=== PATIENT | female | born 1950 ===

== ENCOUNTER 2020-04-25 14:55 | Emergency (ER) | payer MEDICARE, OTHER, SELFPAY ==
--- NOTE | ~2020-04-25 | XR_ITS ---
EXAMINATION: XR chest 2V DATE: 04/25/2020 16:20 INDICATION: Mid to right-sided chest burning pain. TECHNIQUE: Frontal and lateral views of the chest were obtained. COMPARISON: None. FINDINGS: There is mild atelectasis in left lower lung zone. No pleural effusion or pneumothorax. The heart size is normal. Surgical clips in the right upper quadrant are likely from cholecystectomy. IMPRESSION: 1. Mild atelectasis in left lower lung zone. Reviewed, dictated and finalized at location A. CONTROL TECHNICIAN G
[2020-04-25 15:15] VITALS: BP 154/74; PULSE 84; RESP 18; TEMP 36.6; O2SAT 98
--- NOTE | 2020-04-25 15:27 | ECG_ITS ---
Measurements Intervals [place] Rate: 73 P: 71 [place]: 171 QRS: 33 QRSD: 100 T: 42 QT: 371 QTc: 410 Interpretive Statements SINUS RHYTHM VENTRICULAR PREMATURE COMPLEXES EARLY PRECORDIAL R/S TRANSITION BORDERLINE ECG Electronically Signed On 04-26-2020 8:10:37 DIRECTOR [employer] by Kristian Tolliver D.O.
[2020-04-25 15:28] VITALS: PULSE 84
[2020-04-25 15:46] LABS: Basophils Absolute Auto 0.06 K/mm3 (0.00-0.10); Basophils Percent Auto 0.7 % (0.0-1.0); Eosinophils Absolute Auto 0.26 K/mm3 (0.02-0.50); Eosinophils Percent Auto 3.1 % (1.0-6.0); Hematocrit 39.5 % (35.0-42.0); Immature Granulocyte Absolute 0.02 K/mm3 (0.00-0.00); Immature Granulocyte Percent A 0.2 % (0.0-0.0); Lymphocytes Absolute Auto 1.87 K/mm3 (1.10-4.50); Lymphocytes Percent Auto 22.3 % (18.0-42.0); Mean Corpuscular HGB Conc 32.9 g/dL (32.0-36.0); Mean Corpuscular Hemoglobin 30.2 pg (27.0-31.0); Mean Corpuscular Volume 91.6 fL (78.0-102.0); Mean Platelet Volume 8.7 fl (9.2-11.8); Monocytes Absolute Auto 0.46 K/mm3 (0.10-0.90); Monocytes Percent Auto 5.5 % (2.0-11.0); Neutrophils Absolute Auto 5.7 K/mm3 (1.7-7.2); Neutrophils Percent Auto 68.2 % (50.0-70.0); Platelet Count Result 336 K/mm3 (150-420); Red Blood Count 4.31 M/mm3 (4.20-5.40); Red Cell Distribution Width 12.5 % (11.6-14.4); White Blood Count 8.4 K/mm3 (4.8-10.8)
[2020-04-25 16:01] LABS: Albumin Level 3.3 g/dL (3.4-5.0); Alkaline Phosphatase 67 U/L (46-116); Anion Gap 8 mmol/L (8-16); Aspartate Amino Transferase 12 U/L (15-37); Bilirubin,Total 0.3 mg/dL (0.00-1.00); Blood Urea Nitrogen 13 mg/dL (7-18); Calcium 9.3 mg/dL (8.5-10.1); Carbon Dioxide 29 mmol/L (21-32); Chloride 103 mmol/L (98-108); Estimated Glomerular Filt Rate > 60; Glucose 121 mg/dL (70-99); Osmolality Calculated 291 mOsm/kg (285-295); Potassium 3.6 mmol/L (3.5-5.1); Sodium 140 mmol/L (136-145); Total Protein 6.7 g/dL (6.4-8.2); Troponin I 4.1 ng/L (0.00-60.4)
[2020-04-25 16:02] LABS: Alanine Aminotransferase < 6 U/L (14-59)
--- NOTE | 2020-04-25 16:36 | ED.CHESTPAIN ---
HPI - Chest Pain General Chief Complaint: Chest Pain Stated Complaint: Espo pain History of Present Illness HPI narrative: this is a 69-year-old female that presents with some epigastric burning and right-sided chest discomfort started earlier today is currently subsided and patient is pain-free with no shortness of breath no fever chills, patient was diagnosed in the past with epigastric spasms. complaint: chest pain Onset (ago): hour(s) Timing of current episode: now resolved Onset: during rest Related Data Home Medications Medication Instructions Recorded Confirmed No Home Medications 04/25/20 04/25/20 Allergies Allergy/AdvReac Type Severity Reaction Status Date / Time CEPHALEXIN MONOHYDRATE Allergy Severe RASH Uncoded 11/18/10 09:55 Review of Systems Review of Systems: All systems reviewed & are unremarkable except as noted in HPI and below PMFSH Past Medical History Medical History Esophageal spasm Exam Const: General: cooperative, healthy appearing and comfortable HENMT: Head: normal to inspection General nose exam: Normal external nose present Mouth: Yes Normal oral and palatal mucosa present Eyes: General: appearance normal, both eyes and all related structures Resp: Effort & Inspection: normal respiratory effort and able to speak in complete sentences Cardio: Jugular venous distension: no JVD Palpation: normal PMI Rate: regular rate Rhythm: regular rhythm Heart sounds: S1 normal heart sound present and S2 normal heart sound present Back/Spine/Pelvis: Cervical Spine: normal cervical lordosis Skin: General skin exam: normal color Neuro: General: oriented to person, oriented to place, oriented to time, patient oriented x3 and gait normal Psych: Appearance: well kempt Mental Status: mental status grossly normal Speech and movement: Normal speech and movement present Course Course Emergency Course: patient doing well her epigastric burning has resolved x-rays and labs EKG reviewed were reviewed with patient. Vital Signs Vital signs: Vital Signs Temperature 36.6 C 04/25/20 15:15 Pulse Rate 84 04/25/20 15:15 Respiratory Rate 18 04/25/20 15:15 Blood Pressure 154/74 H 04/25/20 15:15 Pulse Oximetry 98 04/25/20 15:15 Temperature 36.6 C 04/25/20 15:15 Pulse Rate 84 04/25/20 15:28 Respiratory Rate 18 04/25/20 15:15 Blood Pressure 154/74 H 04/25/20 15:15 Pulse Oximetry 98 04/25/20 15:15 MDM - Chest Pain Lab Data Result diagrams: 04/25/20 15:40 04/25/20 15:40 Labs: Lab Results 04/25/20 04/25/20 Range/Units 15:40 15:40 WBC 8.4 (4.8-10.8) K/mm3 RBC 4.31 (4.20-5.40) M/mm3 Hgb 13.0 (11.7-13.8) g/dL Hct 39.5 (35.0-42.0) % MCV 91.6 (78.0-102.0) fL MCH 30.2 (27.0-31.0) pg MCHC 32.9 (32.0-36.0) g/dL RDW 12.5 (11.6-14.4) % Plt Count 336 (150-420) K/mm3 MPV 8.7 L (9.2-11.8) fl Immature Gran % (Auto) 0.2 H (0.0-0.0) % Neut % (Auto) 68.2 (50.0-70.0) % Lymph % (Auto) 22.3 (18.0-42.0) % [place] % (Auto) 5.5 (2.0-11.0) % Eos % (Auto) 3.1 (1.0-6.0) % Baso % (Auto) 0.7 (0.0-1.0) % Lymph # (Auto) 1.87 (1.10-4.50) K/mm3 [place] # (Auto) 0.46 (0.10-0.90) K/mm3 Eos # (Auto) 0.26 (0.02-0.50) K/mm3 Baso # (Auto) 0.06 (0.00-0.10) K/mm3 Abs Immat Gran (auto) 0.02 H (0.00-0.00) K/mm3 Absolute Neuts (auto) 5.7 (1.7-7.2) K/mm3 Absolute Nucleated RBC 0.00 (0.00-0.00) K/mm3 Nucleated RBC % 0.0 (0-0.0) % Sodium 140 (136-145) mmol/L Potassium 3.6 (3.5-5.1) mmol/L Chloride 103 (98-108) mmol/L Carbon Dioxide 29 (21-32) mmol/L Anion Gap 8 (8-16) mmol/L BUN 13 (7-18) mg/dL Creatinine 0.86 (0.55-1.02) mg/dL Estim Creat Clear Calc Not Reportable Estimated GFR > 60 (59 - ) Glucose 121 H (70-99) mg/dL Calculated Osmolality 291 (285-295) mOsm/kg Calcium 9.
[2020-04-25 16:40] VITALS: BP 144/62; PULSE 77; RESP 15; O2SAT 100
== END 2020-04-25 16:50 | disposition home or self-care (01) ==
PROVIDERS: Emergency Provider Emergency Medicine; PCP Family Medicine
DX: K22.4 Dyskinesia of esophagus (principal)
CPT/HCPCS: 36415; 71046; 80053; 84484; 85025; 93005; 99283; 99284

== ENCOUNTER 2021-11-02 16:32 | Emergency (ER) | payer MEDICARE, OTHER, SELFPAY ==
[2021-11-02 16:35] VITALS: BP 150/66; PULSE 88; RESP 18; TEMP 36.6; O2SAT 98
--- NOTE | 2021-11-02 17:44 | ED.SKABFB ---
HPI - Skin/Abscess/Foreign Bdy General Chief complaint: Skin/Abscess/Foreign Body Stated complaint: rash on neck and chest Time Seen by Provider: 11/02/21 16:36 Source: patient, family and RN notes reviewed Mode of arrival: ambulatory Limitations: no limitations History of Present Illness complaint: rash (plaque-like erythematous unilateral rash of right face, neck and upper chest and back. mild excoriation. no urticariae or pustules.) Onset (ago): day(s) (3) Tetanus up to date: unsure Location: head, face, neck and chest Severity: mild Severity scale (1-10): 3 Quality: aching and pruritic Pain Consistency: constant Relieving factors: none Exacerbating factors: none Context: other (prior shingles eruption) Associated symptoms: denies other symptoms Treatments prior to arrival: none Related Data Allergies Allergy/AdvReac Type Severity Reaction Status Date / Time CEPHALEXIN MONOHYDRATE Allergy Severe RASH Uncoded 11/18/10 09:55 Review of Systems Review of Systems: All systems reviewed & are unremarkable except as noted in HPI and below Constitutional: Constitutional: Reports no additional constitutional complaints Eyes: Eyes: Reports no additional eye complaints ENT: Reports system reviewed and no additional complaints, except as documented Cardiovascular: Cardiovascular: Reports no additional cardiovascular complaints Respiratory: Respiratory: Reports no additional respiratory complaints Gastrointestinal: Gastrointestinal: Reports no additional gastrointestinal complaints Genitourinary: Genitourinary: Reports no additional female genitourinary complaints Musculoskeletal: Musculoskeletal: Reports no additional musculoskeletal complaints Integumentary/Breasts: Skin/Breast: Reports system reviewed and no additional complaints, except as docu and Reports rash Neurologic: Reports system reviewed and no additional complaints, except as documented Psychiatric: Psychiatric: Reports no additional psychiatric complaints Endocrine: Endocrine: Reports no additional endocrine complaints Hematologic/Lymphatic: Hematologic/Lymphatic: Reports no additional hematologic/lymphatic complaints Allergic/Immunologic: Allergic/Immunologic: Reports no additional allergic/immunologic complaints PMFSH Past Medical History Medical History Esophageal spasm Herpes zoster Exam Const: General: healthy appearing and no acute distress Nutritional Appearance: well nourished Orientation/consciousness: patient oriented x3 Limitations: no limitations HENMT: Head: normal to inspection Ears: external ears normal, TM's normal bilaterally and EAC's normal General nose exam: Normal external nose present and Normal nares present Face and sinus: normal facial exam and sinuses nontender Mouth: Yes Normal oral and palatal mucosa present and Yes moist mucous membranes Teeth and gingiva: dentition normal Throat: posterior oropharynx normal Other: Mildly erythematous plaque-like unilateral right lateral face, head and neck with extensions to upper chest and back. mild excoriations with no acute vesicles or pustules. no acute eye, ear or nasal involvement. Eyes: Conjunctivae: conjunctivae normal Pupils: Equal, round and reactive pupils present EOM: EOMs intact bilaterally Neck: Neck: normal visual inspection, no lymphadenopathy and no meningeal signs Chest: Chest palpation & inspection: normal inspection of the chest Resp: Effort & Inspection: normal respiratory effort Auscultation: clear to auscultation bilaterally Cardio: Rate: regular rate Rhythm: regular rhythm GI: GI Palp: Yes Soft to palpation and No Tenderness to palpation present (GI) Auscultation: normal bowel sounds : General: Yes bladder normal to palpation and Yes no CVA tenderness Bimanual exam- vagina & uterus: bladder normal to palpation Back/Spine/Pelvis: Back: no CVA tenderness Skin: General skin exam: no
[2021-11-02 18:06] VITALS: BP 150/66; PULSE 88; RESP 18; TEMP 36.6; O2SAT 97
== END 2021-11-02 18:05 | disposition home or self-care (01) ==
PROVIDERS: Emergency Provider Emergency Medicine; PCP Family Medicine
DX: B02.9 Zoster without complications (principal)
CPT/HCPCS: 99283

== ENCOUNTER 2023-01-12 09:55 | Emergency (ER) | payer MEDICARE, OTHER, SELFPAY ==
[2023-01-12 09:55] VITALS: BP 150/79; PULSE 102; RESP 18; TEMP 36.6; O2SAT 99
--- NOTE | 2023-01-12 10:17 | ED.PSYCH ---
HPI - Psych General Chief Complaint: Psychiatric Symptoms Stated Complaint: increased confusion Time Seen by Provider: 01/12/23 10:10 Source: patient, family and RN notes reviewed Mode of arrival: ambulatory Limitations: no limitations History of Present Illness HPI Narrative: daughter brings patient in today because she has been wandering around town. She will not allow home health come into her house could she thinks they are stealing from them. She has been seeing relatives. She has depression and tells family that she just wants to . complaint: suicidal ideation Onset (ago): day(s) (1) Duration: constant History of same: Yes Relieving factors: none Exacerbating factors: none Associated psychiatric symptoms: depression and visual hallucinations ( Seeing relatives) Associated symptoms: denies other symptoms Related Data Home Medications Medication Instructions Recorded Confirmed donepezil 10 mg tablet 10 mg PO HS 01/12/23 01/12/23 omeprazole 40 mg capsule,delayed 40 mg PO DAILY 01/12/23 01/12/23 release Allergies Allergy/AdvReac Type Severity Reaction Status Date / Time CEPHALEXIN MONOHYDRATE Allergy Severe RASH Uncoded 11/18/10 09:55 Review of Systems Review of Systems: All systems reviewed & are unremarkable except as noted in HPI and below PMFSH Past Medical History Medical History Esophageal spasm Herpes zoster Social History Social History Substance use type: does not use Exam Const: General: healthy appearing, no acute distress and confusion Nutritional Appearance: well nourished Orientation/consciousness: oriented to person and oriented to place Limitations: no limitations HENMT: Head: normal to inspection Ears: external ears normal Face/Nose/Sinus: Normal external nose present Face and sinus: normal facial exam Mouth: Yes moist mucous membranes abnormal Eyes: Conjunctivae: conjunctivae normal Pupils: Equal, round and reactive pupils present EOM: EOMs intact bilaterally Neck: Neck: normal visual inspection Resp: Effort & Inspection: normal respiratory effort Auscultation: clear to auscultation bilaterally Cardio: Rate: regular rate Rhythm: regular rhythm GI: GI Palp: Yes Soft to palpation and No Tenderness to palpation present (GI) Auscultation: normal bowel sounds Back/Spine/Pelvis: Cervical Spine: cervical ROM normal Thoracic/Lumbar Spine: thoraco-lumbar ROM normal Skin: General skin exam: normal color Rashes: no rashes Neuro: General: moves all extremities, no focal motor deficits and CN's II-XI intact bilaterally Speech: normal speech Gait exam (Neuro): Normal gait present Extrem: General: normal to inspection and no clubbing, cyanosis or edema Psych: Appearance: grossly normal and well kempt Speech and movement: Normal speech and movement present Affect: Indifferent affect present Attitude: cooperative Thought process: Circumstantial thought process present Thought content: Yes delusions Course Course Emergency Course: counselors have seen in review of the patient. They are going to deflect her home. They have spoken with the family about possible senior care placement for the dementia that is causing her current symptoms. Vital Signs Vital signs: Vital Signs Temperature 36.6 C 01/12/23 09:55 Pulse Rate 102 H 01/12/23 09:55 Respiratory Rate 18 01/12/23 09:55 Blood Pressure 150/79 H 01/12/23 09:55 Pulse Oximetry 99 01/12/23 09:55 Oxygen Delivery Room Air 01/12/23 09:55 Temperature 37.4 C 01/12/23 15:30 Pulse Rate 93 01/12/23 15:30 Respiratory Rate 14 01/12/23 15:30 Blood Pressure 148/67 H 01/12/23 15:30 Pulse Oximetry 97 01/12/23 15:30 Oxygen Delivery Room Air 01/12/23 15:30 MDM - Psych Differential Diagnosis Differential diagnosis: Likely acute psychosis, depression an
[2023-01-12 10:32] LABS: Add Urine Microscopic? YES; Appearance Urine Clear (Clear); Bilirubin Urine 2+ (Negative); Blood Urine Negative (Negative); Calcium Oxalate Crystals Urine Present /hpf; Color Urine Yellow (Yellow); Glucose Urine UA Trace (Negative); Ketones Urine 1+ (Negative); Leukocyte Esterase Ur Negative LEU/UL (Negative); Nitrate Urine Negative (Negative); Protein Urine 1+ (Negative); RBC Urine None seen /hpf (0-2); Specific Grav Ur >= 1.030 (1.010-1.020); Squamous Epithelial Cell Urine Rare /hpf (Few); WBC Urine 0-3 /hpf (0-3)
[2023-01-12 10:33] LABS: Bacteria Urine Trace /hpf; Mucus Urine Few /lpf
[2023-01-12 10:38] LABS: Basophils Absolute Auto 0.05 K/mm3 (0.00-0.10); Basophils Percent Auto 0.6 % (0.0-1.0); Eosinophils Absolute Auto 0.08 K/mm3 (0.02-0.50); Hematocrit 42.4 % (35.0-42.0); Hemoglobin 14.2 g/dL (11.7-13.8); Immature Granulocyte Absolute 0.02 K/mm3 (0.00-0.00); Immature Granulocyte Percent A 0.3 % (0.0-0.0); Lymphocytes Absolute Auto 1.15 K/mm3 (1.10-4.50); Lymphocytes Percent Auto 14.8 % (18.0-42.0); Mean Corpuscular HGB Conc 33.5 g/dL (32.0-36.0); Mean Corpuscular Hemoglobin 30.7 pg (27.0-31.0); Mean Corpuscular Volume 91.6 fL (78.0-102.0); Mean Platelet Volume 9.6 fl (9.2-11.8); Monocytes Absolute Auto 0.55 K/mm3 (0.10-0.90); Monocytes Percent Auto 7.1 % (2.0-11.0); Neutrophils Absolute Auto 5.9 K/mm3 (1.7-7.2); Neutrophils Percent Auto 76.2 % (50.0-70.0); Platelet Count Result 349 K/mm3 (150-420); Red Blood Count 4.63 M/mm3 (4.20-5.40); Red Cell Distribution Width 13.3 % (11.6-14.4); White Blood Count 7.8 K/mm3 (4.8-10.8)
[2023-01-12 10:43] LABS: Amphetamine Screen Urine Negative (Negative); Barbiturate Screen Urine Negative (Negative); Benzodiazepines Screen Urine Negative (Negative); Cannabinoid Screen Urine Negative (Negative); Cocaine Screen Urine Negative (Negative); Methadone Screen Urine Negative (Negative); Opiate Screen Urine Negative (Negative); Phencyclidine Screen Urine Negative (Negative)
[2023-01-12 11:06] LABS: Acetaminophen < 2 ug/mL (10-30); Alanine Aminotransferase 22 U/L (14-59); Albumin Level 3.2 g/dL (3.4-5.0); Alkaline Phosphatase 76 U/L (46-116); Anion Gap 7 mmol/L (8-16); Aspartate Amino Transferase 16 U/L (15-37); Bilirubin,Total 0.7 mg/dL (0.00-1.00); Blood Urea Nitrogen 12 mg/dL (7-18); Calcium 9.5 mg/dL (8.5-10.1); Carbon Dioxide 33 mmol/L (21-32); Chloride 101 mmol/L (98-108); Estimated CRCL calculation 39 ml/min; Estimated Glomerular Filt Rate > 60; Ethanol < 3 mg/dL (0-6); Glucose 121 mg/dL (70-99); Osmolality Calculated 292 mOsm/kg (285-295); Salicylate 0.6 mg/dL (2.8-20.0); Sodium 141 mmol/L (136-145); Thyroid Stimulating Hormone 0.96 uIU/mL (0.36-3.74); Total Protein 6.7 g/dL (6.4-8.2)
--- NOTE | 2023-01-12 12:02 | PC.NURSE ---
meal tray provided to pt. daughter in room with pt.
--- NOTE | 2023-01-12 12:20 | PC.NURSE ---
daughter going outside, pt observed on camera in room. pt eating meal provided.
--- NOTE | 2023-01-12 12:46 | PC.NURSE ---
pt continues eating meal. daughter returns to room.
--- NOTE | 2023-01-12 13:12 | PC.NURSE ---
daughter and pt informed counselor on way for eval.
--- NOTE | 2023-01-12 15:05 | PC.NURSE ---
pt and daughter chava continues to speak with counselor.
--- NOTE | 2023-01-12 15:29 | PC.NURSE ---
pt sitting in room on observation camera on. daughter out of room speaking with family member.
[2023-01-12 15:30] VITALS: BP 148/67; PULSE 93; RESP 14; TEMP 37.4; O2SAT 97
== END 2023-01-12 15:59 | disposition home or self-care (01) ==
LOC: CHSED 10:47
PROVIDERS: Emergency Provider Emergency Medicine; PCP Family Medicine
DX: F03.90 Unspecified dementia, unspecified severity, without behavioral disturbance, psychotic disturbance, mood disturbance, and anxiety (principal); Z79.899 Other long term (current) drug therapy
CPT/HCPCS: 36415; 80053; 80307; 81001; 84443; 85025; 99284

== ENCOUNTER 2023-01-25 06:47 | Outpatient (NON) | payer MEDICARE, SELFPAY ==
[2023-01-25 07:25] LABS: Basophils Absolute Auto 0.06 K/mm3 (0.00-0.10); Basophils Percent Auto 0.8 % (0.0-1.0); Eosinophils Absolute Auto 0.42 K/mm3 (0.02-0.50); Eosinophils Percent Auto 5.9 % (1.0-6.0); Hemoglobin 10.7 g/dL (11.7-13.8); Immature Granulocyte Absolute 0.01 K/mm3 (0.00-0.00); Immature Granulocyte Percent A 0.1 % (0.0-0.0); Lymphocytes Absolute Auto 1.77 K/mm3 (1.10-4.50); Lymphocytes Percent Auto 24.9 % (18.0-42.0); Mean Corpuscular HGB Conc 31.5 g/dL (32.0-36.0); Mean Corpuscular Hemoglobin 29.6 pg (27.0-31.0); Mean Corpuscular Volume 94.2 fL (78.0-102.0); Mean Platelet Volume 9.7 fl (9.2-11.8); Monocytes Absolute Auto 0.54 K/mm3 (0.10-0.90); Monocytes Percent Auto 7.6 % (2.0-11.0); Neutrophils Absolute Auto 4.3 K/mm3 (1.7-7.2); Neutrophils Percent Auto 60.7 % (50.0-70.0); Platelet Count Result 319 K/mm3 (150-420); Red Blood Count 3.61 M/mm3 (4.20-5.40); White Blood Count 7.1 K/mm3 (4.8-10.8)
[2023-01-25 07:37] LABS: Hemoglobin A1C 5.5 % (<5.7)
[2023-01-25 08:04] LABS: Alanine Aminotransferase 16 U/L (14-59); Albumin Level 3.1 g/dL (3.4-5.0); Alkaline Phosphatase 46 U/L (46-116); Anion Gap 4 mmol/L (8-16); Aspartate Amino Transferase 15 U/L (15-37); Bilirubin,Total 0.6 mg/dL (0.00-1.00); Blood Urea Nitrogen 7 mg/dL (7-18); Calcium 8.7 mg/dL (8.5-10.1); Carbon Dioxide 32 mmol/L (21-32); Chloride 109 mmol/L (98-108); Cholesterol 155 mg/dL (0-200); Estimated Glomerular Filt Rate > 60; Glucose 82 mg/dL (70-99); HDL Direct 60 mg/dL (40-60); LDL Cholesterol Calculated 80 mg/dL (<130); Osmolality Calculated 297 mOsm/kg (285-295); Potassium 3.7 mmol/L (3.5-5.1); Sodium 145 mmol/L (136-145); Total Protein 5.4 g/dL (6.4-8.2); Triglycerides 73 mg/dL (0-150); Vitamin B12 334 pg/mL (193-986)
[2023-01-25 08:08] LABS: Thyroid Stimulating Hormone Reflex 1.94 u/IU/mL (0.36-3.74)
[2023-01-28 02:19] LABS: Methylmalonic Acid 110 nmol/L (87-318)
[2023-01-28 19:46] LABS: Vitamin D 25 Hydroxy 27 ng/mL (30-100)
== END 2023-01-25 06:48 | disposition home or self-care (01) ==
LOC: CHSLAB 06:50
PROVIDERS: Visit Provider Family Medicine
DX: F03.90 Unspecified dementia, unspecified severity, without behavioral disturbance, psychotic disturbance, mood disturbance, and anxiety (principal); Z79.899 Other long term (current) drug therapy
CPT/HCPCS: 36415; 80053; 80061; 82306; 82607; 83036; 83921; 84443; 85025

== ENCOUNTER 2023-02-28 12:37 | Outpatient (NON) | payer MEDICARE, SELFPAY ==
[2023-02-28 13:05] LABS: Influenza Control Valid (Valid)
== END 2023-02-28 12:38 | disposition home or self-care (01) ==
LOC: CHSLAB 12:42
PROVIDERS: Visit Provider Family Medicine
DX: R05.9 Cough, unspecified (principal); R51.9 Headache, unspecified; R53.1 Weakness
CPT/HCPCS: 87804

== ENCOUNTER 2023-04-03 13:11 | Outpatient (CLI) | payer MEDICARE, OTHER, SELFPAY | END 2023-04-03 13:12 | disposition home or self-care (01) | PROVIDERS: PCP Family Medicine; Visit Provider Family Medicine | DX: R07.9 Chest pain, unspecified (principal); R94.31 Abnormal electrocardiogram [ECG] [EKG] | CPT/HCPCS: 93005 ==

== ENCOUNTER 2023-06-05 06:52 | Outpatient (NON) | payer MEDICARE, SELFPAY ==
[2023-06-08 08:54] LABS: Vitamin D 25 Hydroxy 38 ng/mL (30-100)
== END 2023-06-05 06:53 | disposition home or self-care (01) ==
LOC: CHSLAB 06:53
PROVIDERS: Visit Provider Family Medicine
DX: E55.9 Vitamin D deficiency, unspecified (principal)
CPT/HCPCS: 36415; 82306

== ENCOUNTER 2023-06-28 06:41 | Outpatient (NON) | payer MEDICARE, SELFPAY ==
[2023-06-28 08:20] LABS: Vitamin B12 309 pg/mL (193-986)
== END 2023-06-28 06:42 | disposition home or self-care (01) ==
LOC: CHSLAB 06:42
PROVIDERS: Visit Provider Family Medicine
DX: E55.9 Vitamin D deficiency, unspecified (principal)
CPT/HCPCS: 36415; 82607

== ENCOUNTER 2023-10-04 07:48 | Emergency (ER) | payer MEDICARE, OTHER, SELFPAY ==
[2023-10-04] VITALS (10 sets, daily range): BP systolic 164–181; BP diastolic 64–96; PULSE 71; RESP 14; TEMP 36.7; O2SAT 97–99
--- NOTE | ~2023-10-04 | XR_ITS ---
Portable chest x-ray Comparison: 04/25/2020 Clinical History: Status post fall Findings: Lungs are clear, without focal consolidation or pleural effusion. Cardiomediastinal silho uette is stable. Bones and soft tissues are unremarkable. Impression: Clear lungs. No fracture evident. Reviewed, dictated and finalized at location . Impression: Clear lungs. No fracture evident.
--- NOTE | ~2023-10-04 | CT_ITS ---
EXAMINATION: CT abdomen pelvis w con DATE: 10/04/2023 08:58 INDICATION: Left upper quadrant abdominal pain. Fall. Low back pain. TECHNIQUE: Computed tomography (CT) of the abdomen and pelvis was performed with 100 mL Omnipaque 350 intravenous contrast. Automated exposure control and iterative reconstruction technique were employe d. The dose-length product was 287.98 mGy-cm. COMPARISON: None. FINDINGS: The visualized portions of the lung bases demonstrate mild atelectasis. No pleural effusion . The heart size is normal. No pericardial effusion. There is a small sliding hiatal hernia. The live r, gallbladder, pancreas, and adrenal glands are normal. There are changes of cholecystectomy. There are cysts in right kidney measuring up to 9 mm. The bladder is distended. Stool distends the rectum. There is diverticulosis of the colon without evidence of diverticulitis. There is a jejunal intussusc eption in left abdomen, likely transient. The appendix is normal. There is calcified atherosclerosis of the aorta and many of the other arteries. There are no pathologically enlarged lymph nodes. There is no free intraperitoneal fluid. There is mild thoracic and lumbar spondylosis. IMPRESSION: 1. Small sliding hiatal hernia. 2. Stool distends the rectum. 3. Jejunal intussusception in left abdomen, likely transient. Reviewed, dictated and finalized at location A.
--- NOTE | ~2023-10-04 | CT_ITS ---
CT head without contrast Indication: Status post fall Technique: Serial scans were obtained through the brain without the administration of contrast. Dose reduction technique was used on this scan by utilizing automated exposure control and iterative recon struction technique. The dose-length product (DLP) was 681.00 mGy-cm. Findings: There is no evidence of intracranial hemorrhage, mass lesion, or acute infarct. The ventri cles and subarachnoid spaces are dilated, consistent with mild atrophy. Low attenuation regions are seen within the periventricular white matter bilaterally, likely representing changes from chronic mi crovascular ischemic disease. There is no evidence of edema, mass effect or midline shift. The visu alized paranasal sinuses and mastoid air cells are clear. Impression: No intracranial hemorrhage, mass, or acute infarct. Atrophy and chronic white matter changes, as above. Reviewed, dictated and finalized at location . Impression: No intracranial hemorrhage, mass, or acute infarct. Atrophy and chronic white matter changes, as above.
--- NOTE | ~2023-10-04 | CT_ITS ---
Noncontrast CT scan of the cervical spine Technique: Multiple contiguous axial [address] images of the cervical spine were obtained and rec onstructed in 2D sagittal and coronal planes on the acquisition scanner. Dose reduction technique was used on this scan by utilizing automated exposure control, adjustment of the mA and/or kV according to patient size. The dose-length product (DLP) was 103.19 mGy-cm. Clinical History: Pain Findings: No fractures or dislocations. There is moderate to advanced degenerative disc narrowing at C5-C6 and C6-C7. There are mild facet joint degenerative changes throughout the cervical spine. Ther e is probable bilateral mild neural foraminal narrowing at C5-C6 and C6-C7. No prevertebral soft tiss ue swelling. Impression: No fracture or subluxation of the cervical spine. Mild degenerative spondylosis. Reviewed, dictated and finalized at [facility]. Impression: No fracture or subluxation of the cervical spine. Mild degenerative spondylosis.
--- NOTE | 2023-10-04 07:56 | ED.FALL ---
HPI - Fall General Chief Complaint: Fall Stated Complaint: fall injury Time Seen by Provider: 10/04/23 07:54 History of Present Illness HPI Narrative: Pt lost balance and fell against wall and then slid to floor. The fall was unwitnessed. Pt complains of hematoma to back of head and neck pain and left anterior chest pain. Pt denies LOC. Pt has been battling vertigo and this may have contributed to fall. Related Data Home Medications Medication Instructions Recorded Confirmed donepezil 10 mg tablet 10 mg PO HS 01/12/23 10/04/23 omeprazole 40 mg capsule,delayed 40 mg PO DAILY 01/12/23 10/04/23 release Metamucil 1 tbsp PO DAILY 10/04/23 10/04/23 Tylenol Arthritis Pain 650 mg PO Q6-8H PRN Pain 10/04/23 10/04/23 acetaminophen 325 mg PO BID 10/04/23 10/04/23 cholecalciferol (vitamin D3) 2,000 units PO DAILY 10/04/23 10/04/23 hydroxyzine pamoate 50 mg PO Q6-12H 10/04/23 10/04/23 nitroglycerin 0.4 mg sublingual PRN 10/04/23 10/04/23 sucralfate 1 tablet PO TIDWMEAL 10/04/23 10/04/23 venlafaxine 75 mg PO BID 10/04/23 10/04/23 Allergies Allergy/AdvReac Type Severity Reaction Status Date / Time ARCELIA Inhibitors Allergy Unknown Verified 10/04/23 08:10 losartan Allergy Unknown Verified 10/04/23 08:10 CEPHALEXIN MONOHYDRATE Allergy Severe RASH Uncoded 11/18/10 09:55 Review of Systems Review of Systems: All systems reviewed & are unremarkable except as noted in HPI and below PMFSH Past Medical History Medical History Esophageal spasm Herpes zoster Social History Social History Substance use type: does not use Exam Const: General: healthy appearing and no acute distress Nutritional Appearance: well nourished Orientation/consciousness: patient oriented x3 Limitations: no limitations HENMT: Head: hematoma right occipital Eyes: Conjunctivae: conjunctivae normal EOM: EOMs intact bilaterally Neck: Neck: normal visual inspection and no lymphadenopathy Other: mild posterior midline tenderness no step off Chest: Chest palpation & inspection: tenderness other (left lower anterior ribs) Resp: Effort & Inspection: normal respiratory effort Auscultation: clear to auscultation bilaterally Cardio: Rate: regular rate Rhythm: regular rhythm GI: Auscultation: normal bowel sounds Other: tender LUQ to palpation Back/Spine/Pelvis: Back: no CVA tenderness Skin: General skin exam: normal color Rashes: no rashes Wounds: no wounds Neuro: General: patient oriented x3, moves all extremities, no meningeal signs, no focal motor deficits and CN's II-XI intact bilaterally Cranial nerves: Yes Nystagmus not present Speech: normal speech Extrem: General: normal to inspection and no clubbing, cyanosis or edema Psych: Mental Status: mental status grossly normal Affect: normal affect Attitude: cooperative Course Vital Signs Vital signs: Vital Signs Temperature 98.1 F 10/04/23 07:56 Pulse Rate 71 10/04/23 07:56 Respiratory Rate 14 10/04/23 07:56 Blood Pressure 164/75 H 10/04/23 07:56 Pulse Oximetry 98 10/04/23 07:56 Oxygen Delivery Room Air 10/04/23 07:56 Temperature 98.1 F 10/04/23 07:56 Pulse Rate 71 10/04/23 07:56 Respiratory Rate 14 10/04/23 07:56 Blood Pressure 169/72 H 10/04/23 09:30 Pulse Oximetry 98 10/04/23 09:31 Oxygen Delivery Room Air 10/04/23 07:56 MDM - Fall MDM Narrative Medical decision making narrative: Pt lost balance and fell and struck wall. Unwitnessed fall. Pt complains of neck left rib and LUQ pain on exam. cxr labs and CT of head and neck and abd/pelvis ordered. cxr no fx nad, head and c spine no acute. transient appearing jejunal intussusception per read. Pt snowing no signs of obstruction now. discussed findings with daughter and will monitor for any signs of obstrcution like worsening pain or persistent vomiting.
[2023-10-04 08:14] LABS: Basophils Absolute Auto 0.05 K/mm3 (0.00-0.10); Basophils Percent Auto 0.5 % (0.0-1.0); Eosinophils Absolute Auto 0.21 K/mm3 (0.02-0.50); Eosinophils Percent Auto 2.2 % (1.0-6.0); Hematocrit 36.2 % (35.0-42.0); Immature Granulocyte Absolute 0.09 K/mm3 (0.00-0.00); Immature Granulocyte Percent A 0.9 % (0.0-0.0); Lymphocytes Absolute Auto 1.99 K/mm3 (1.10-4.50); Lymphocytes Percent Auto 20.8 % (18.0-42.0); Mean Corpuscular HGB Conc 33.1 g/dL (32-36); Mean Corpuscular Hemoglobin 30.2 pg (27.0-31.0); Mean Corpuscular Volume 91.2 fL (78.0-102.0); Mean Platelet Volume 8.5 fl (9.2-11.8); Monocytes Absolute Auto 0.53 K/mm3 (0.10-0.90); Monocytes Percent Auto 5.5 % (2.0-11.0); Neutrophils Absolute Auto 6.69 K/mm3 (1.70-7.20); Neutrophils Percent Auto 70.1 % (50.0-70.0); Platelet Count Result 316 K/mm3 (150-420); Red Blood Count 3.97 M/mm3 (4.20-5.40); Red Cell Distribution Width 13.2 % (11.6-14.4); White Blood Count 9.6 K/mm3 (4.8-10.8)
[2023-10-04 08:28] LABS: Alanine Aminotransferase 20 U/L (14-59); Albumin Level 3.3 g/dL (3.4-5.0); Alkaline Phosphatase 68 U/L (46-116); Anion Gap 3 mmol/L (4-12); Aspartate Amino Transferase 16 U/L (15-37); Bilirubin,Total 0.4 mg/dL (0.00-1.00); Blood Urea Nitrogen 14 mg/dL (7-18); Calcium 8.8 mg/dL (8.5-10.1); Carbon Dioxide 37 mmol/L (21-32); Chloride 103 mmol/L (98-108); Estimated CRCL calculation 45 ml/min; Estimated Glomerular Filt Rate > 60; Glucose 84 mg/dL (70-99); Osmolality Calculated 295 mOsm/kg (285-295); Potassium 4.1 mmol/L (3.5-5.1); Sodium 143 mmol/L (136-145); Total Protein 6.7 g/dL (6.4-8.2)
[2023-10-04 08:30] LABS: INR 0.9; Prothrombin Time 10.3 Seconds (9.64-11.0)
[2023-10-04 08:39] LABS: Partial Thromboplastin Time 23.7 Sec (23.9-30.70)
--- NOTE | 2023-10-04 09:44 | PC.NURSE ---
Report given to LION Martinez, [facility]. They are coming to pickle pumper pt.
== END 2023-10-04 09:54 ==
PROVIDERS: Emergency Provider Emergency Medicine; PCP Family Medicine
DX: S00.83XA Contusion of other part of head, initial encounter (principal); Z79.899 Other long term (current) drug therapy; W18.39XA Other fall on same level, initial encounter
CPT/HCPCS: 36415; 70450; 71045; 72125; 74177; 80053; 85025; 85610; 85730; 99284; Q9967

== ENCOUNTER 2024-01-02 09:58 | Outpatient (CLI) | payer MEDICARE, OTHER, SELFPAY ==
--- NOTE | ~2024-01-02 | XR_ITS ---
3 VIEWS THORACIC SPINE Ordering provider: Jay Limon MD History: . OTHER CHEST PAIN,?INJURY,POOR HISTORIAN . Comparison: None. FINDINGS: VERTEBRAL BODIES: Normal height and alignment. No visible fracture or subluxation. Degenerative scott es of the spine. DISK SPACES: Multilevel narrowing of the disc spaces in the lower thoracic area. SOFT TISSUES: Normal. IMPRESSION: No acute osseous abnormality of the thoracic spine. Reviewed, dictated and finalized at location A. LEADER
--- NOTE | ~2024-01-02 | XR_ITS ---
AP and oblique views of the left ribs, and PA chest radiograph Clinical History: Pain Findings: No rib fracture is seen. Osseous alignment is anatomic. Lungs are clear, without focal cons olidation or pleural effusion. Possible COPD. Cardiomediastinal contour is within normal limits. Soft tissues are unremarkable. Impression: No rib fracture is seen. Clear lungs. Possible COPD. Reviewed, dictated and finalized at location . ERS COMPENSATION MANAGER Impression: No rib fracture is seen. Clear lungs. Possible COPD.
== END 2024-01-02 09:59 | disposition home or self-care (01) ==
LOC: CHSIMG 10:01
PROVIDERS: PCP Family Medicine; Visit Provider Family Medicine
DX: R07.89 Other chest pain (principal)
CPT/HCPCS: 71101; 72072

== ENCOUNTER 2024-01-15 12:53 | Outpatient (CLI) | payer MEDICARE, OTHER, SELFPAY ==
[2024-01-15 13:14] LABS: Basophils Absolute Auto 0.06 K/mm3 (0.00-0.10); Basophils Percent Auto 0.6 % (0.0-1.0); Eosinophils Absolute Auto 0.24 K/mm3 (0.02-0.50); Eosinophils Percent Auto 2.2 % (1.0-6.0); Hematocrit 37.2 % (35.0-42.0); Hemoglobin 12.1 g/dL (11.7-13.8); Immature Granulocyte Absolute 0.05 K/mm3 (0.00-0.00); Immature Granulocyte Percent A 0.5 % (0.0-0.0); Lymphocytes Absolute Auto 2.11 K/mm3 (1.10-4.50); Lymphocytes Percent Auto 19.6 % (18.0-42.0); Mean Corpuscular HGB Conc 32.5 g/dL (32-36); Mean Corpuscular Hemoglobin 29.9 pg (27.0-31.0); Mean Corpuscular Volume 91.9 fL (78.0-102.0); Mean Platelet Volume 8.4 fl (9.2-11.8); Monocytes Absolute Auto 0.62 K/mm3 (0.10-0.90); Monocytes Percent Auto 5.8 % (2.0-11.0); Neutrophils Percent Auto 71.3 % (50.0-70.0); Platelet Count Result 345 K/mm3 (150-420); Red Blood Count 4.05 M/mm3 (4.20-5.40); Red Cell Distribution Width 13.2 % (11.6-14.4); White Blood Count 10.8 K/mm3 (4.8-10.8)
[2024-01-15 13:21] LABS: Add Urine Microscopic? NO; Appearance Urine Clear (Clear); Bilirubin Urine Negative (Negative); Blood Urine Negative (Negative); Color Urine Light Yellow (Yellow); Glucose Urine UA Negative (Negative); Ketones Urine Negative (Negative); Leukocyte Esterase Ur Negative (Negative); Nitrate Urine Negative (Negative); Protein Urine Negative (Negative); Specific Grav Ur <= 1.005 (1.010-1.020); Urobilinogen Urine 0.2 mg/dL (0.2-1.0); pH Urine 5.5 (5.0-8.0)
[2024-01-15 13:57] LABS: Anion Gap 9 mmol/L (4-12); Blood Urea Nitrogen 12 mg/dL (7-18); Calcium 9.4 mg/dL (8.5-10.1); Carbon Dioxide 31 mmol/L (21-32); Chloride 101 mmol/L (98-108); Estimated Glomerular Filt Rate > 60; Glucose 105 mg/dL (70-99); Osmolality Calculated 291 mOsm/kg (285-295); Potassium 3.3 mmol/L (3.5-5.1); Sodium 141 mmol/L (136-145)
== END 2024-01-15 12:54 | disposition home or self-care (01) ==
LOC: CHSLAB 12:56
PROVIDERS: PCP Family Medicine; Visit Provider Family Medicine
DX: R44.3 Hallucinations, unspecified (principal); N39.0 Urinary tract infection, site not specified
CPT/HCPCS: 36415; 80048; 81003; 85025; 87077; 87086; 87088; 87186

== ENCOUNTER 2024-01-19 16:47 | Emergency (ER) | payer MEDICARE, OTHER, SELFPAY ==
--- NOTE | ~2024-01-19 | CT_ITS ---
EXAMINATION: CT brain wo con DATE: 01/19/2024 17:33 INDICATION: Altered mental status TECHNIQUE: Computed tomography (CT) of the head was performed without intravenous contrast. The mA wa s adjusted according to patient size. Iterative reconstruction technique was employed. Exam dose: 605 .33 mGy-cm total exam DLP. COMPARISON: 10/04/2023 CT Brain FINDINGS: Bilateral carotid siphon internal carotid artery calcifications. There is patchy nonspecif ic diminished attenuation of the cerebral white matter, likely due to chronic small vessel ischemic c hanges. No intracranial mass lesion or hemorrhage or cerebrovascular accident is detected. No midline shift or mass effect. No subdural or epidural hematoma. No skull fracture or bone destruction. The paranasal nasal sinuses and mastoid air cells are normally developed and aerated. IMPRESSION: Cerebral atherosclerosis and chronic small vessel ischemic changes No acute intracranial abnormality Reviewed, dictated and finalized at [facility] Reviewed, dictated and finalized at [facility]. ING ENGINEER
--- NOTE | 2024-01-19 16:52 | ED.FEMALEGU ---
HPI - Female Genitourinary General Chief complaint: Urogenital-Female Stated complaint: uti Time Seen by Provider: 01/19/24 16:52 Source: patient and EMS Mode of arrival: ambulatory Limitations: no limitations History of Present Illness HPI Narrative: 73-year-old female with a history of dementia, depression, zoster, esophageal spasm [facility] -- questionable [facility]. The patient denied any dysuria or hematuria. -- patient has not been compliant with following instructions. The patient does not want to be examined. Patient has had psychotic symptoms off and on for the past 1 year. She was seen by a psychiatrist and ordered hydroxyzine around 3 months ago without any relief. Patient denies any fever or chills. Patient denies any complaints. Onset (ago): day(s) ( Patient has had this symptoms off and on for the past 1 year but appears to have worsened over the past 1 week.) Related Data Home Medications Medication Instructions Recorded Confirmed donepezil 10 mg tablet 10 mg PO HS 01/12/23 01/19/24 omeprazole 40 mg capsule,delayed 40 mg PO DAILY 01/12/23 01/19/24 release Metamucil 1 tbsp PO DAILY 10/04/23 01/19/24 Tylenol Arthritis Pain 650 mg PO Q6-8H PRN Pain 10/04/23 01/19/24 acetaminophen 325 mg PO BID 10/04/23 01/19/24 cholecalciferol (vitamin D3) 2,000 units PO DAILY 10/04/23 01/19/24 hydroxyzine pamoate 25 mg PO Q6H PRN anxiety 10/04/23 01/19/24 nitroglycerin 0.4 mg sublingual PRN 10/04/23 01/19/24 sucralfate 1 tablet PO QID 10/04/23 01/19/24 venlafaxine 75 mg PO BID 10/04/23 01/19/24 alprazolam 0.25 mg tablet 0.25 mg PO BID 01/19/24 01/19/24 lidocaine 5 % topical patch 1 patch topical DAILY 01/19/24 01/19/24 potassium chloride 10 mEq 10 meq PO DAILY 01/19/24 01/19/24 tablet,extended release (Klor-Con) Allergies Allergy/AdvReac Type Severity Reaction Status Date / Time ARCELIA Inhibitors Allergy Unknown Verified 01/19/24 17:09 losartan Allergy Unknown Verified 01/19/24 17:09 CEPHALEXIN MONOHYDRATE Allergy Severe RASH Uncoded 01/19/24 17:09 Review of Systems Review of Systems: ROS unobtainable: Yes unobtainable due to mental status [facility] Past Medical History Medical History Esophageal spasm Herpes zoster Social History Social History Substance use type: does not use Exam Narrative: vitals are stable. Const: General: healthy appearing Orientation/consciousness: confusion HENMT: Head: normal to inspection Ears: external ears normal Face/Nose/Sinus: Normal external nose present Face and sinus: normal facial exam Mouth: Yes Normal oral and palatal mucosa present Throat: posterior oropharynx normal Eyes: Conjunctivae: conjunctivae normal Pupils: Equal, round and reactive pupils present EOM: EOMs intact bilaterally Direct Ophthalmoscopy: no photophobia Neck: Neck: normal visual inspection, no lymphadenopathy and no meningeal signs Chest: Chest palpation & inspection: normal inspection of the chest and abnormal inspection of the chest Resp: Effort & Inspection: normal respiratory effort Auscultation: clear to auscultation bilaterally Cardio: Rate: regular rate Rhythm: regular rhythm GI: GI Palp: Yes Soft to palpation Auscultation: normal bowel sounds Other: No tenderness/rigidity / rebound. : General: Yes no CVA tenderness Back/Spine/Pelvis: Back: no CVA tenderness Other: No spinal tenderness. Skin: General skin exam: normal color Rashes: no rashes Wounds: no wounds Neuro: General: patient oriented x3, moves all extremities, no meningeal signs, no focal motor deficits and CN's II-XI intact bilaterally Cranial nerves: Yes Nystagmus not present Speech: normal speech Gait exam (Neuro): Normal gait present Extrem: General: normal to inspection and no clubbing, cyanosis or edema Psych: Appearance: grossly normal Mental Status: mental status grossly normal Affect: normal affect Attitude: cooperative Course Course Emergency Course: Questionable urinary tract infection-- urine is negative for UTI. dementia with psychotic symptoms- symptoms resolved after the Haldol. CT of the head did not show any acute findings. Blood work was unremarkable. Vital Signs Vital signs: Vital Signs Temperature 36.6 C 01/19/24 17:08 Pulse Rate 85 01/19/24 17:08 Respiratory Rate 18 01/19/24 17:08 Blood Pressure 152/72 H 01/19/24 17:08 Pulse Oximetry 100 01/19/24 17:08 Oxygen Delivery Room Air 01/19/24 17:08 Temperature 36.6 C 01/19/24 17:08 Pulse Rate 85 01/19/24 17:08 Respiratory Rate 18 01/19/24 17:08 Blood Pressure 152/72 H 01/19/24 17:08 Pulse Oximetry 100 01/19/24 17:08 Oxygen Delivery Room Air 01/19/24 17:08 MDM - Female Genitourinary MDM Narrative Medical decision making narrative: Dementia with psychotic symptoms Lab Data 01/19/24 17:41 01/19/24 17:41 Labs: Lab Results 01/19/24 Range/Units 17:41 WBC 9.5 (4.8-10.8) K/mm3 RBC 3.93 L (4.20-5.40) M/mm3 Hgb 11.9 (11.7-13.8) g/dL Hct 35.3 (35.0-42.0) % MCV 89.8 (78.0-102.0) fL MCH 30.3 (27.0-31.0) pg MCHC 33.7 (32-36) g/dL RDW 13.5 (11.6-14.4) % Plt Count 348 (150-420) K/mm3 MPV 8.7 L (9.2-11.8) fl Immature Gran % (Auto) 0.4 H (0.0-0.0) % Neut % (Auto) 66.6 (50.0-70.0) % Lymph % (Auto) 22.8 (18.0-42.0) % [place] % (Auto) 7.2 (2.0-11.0) % Eos % (Auto) 2.6 (1.0-6.0) % Baso % (Auto) 0.4 (0.0-1.0) % Lymph # (Auto) 2.17 (1.10-4.50) K/mm3 [place] # (Auto) 0.68 (0.10-0.90) K/mm3 Eos # (Auto) 0.25 (0.02-0.50) K/mm3 Baso # (Auto) 0.04 (0.00-0.10) K/mm3 Abs Immat Gran (auto) 0.04 H (0.00-0.00) K/mm3 Absolute Neuts (auto) 6.32 (1.70-7.20) K/mm3 Absolute Nucleated RBC 0.00 (0.00-0.00) K/mm3 Nucleated RBC % 0.0 (0-0.0) % Sodium 140 (136-145) mmol/L Potassium 3.7 (3.5-5.1) mmol/L Chloride 101 (98-108) mmol/L Carbon Dioxide 29 (21-32) mmol/L Anion Gap 10 (4-12) mmol/L BUN 18 (7-18) mg/dL Creatinine 0.99 (0.55-1.02) mg/dL Estim Creat Clear Calc 35 ml/min Estimated GFR 55 L (59 - ) Glucose 134 H (70-99) mg/dL Calculated Osmolality 293 (285-295) mOsm/kg Lactic Acid 1.9 (0.4-2.0) mmol/L Calcium 9.6 (8.5-10.1) mg/dL Total Bilirubin 0.2 (0.00-1.00) mg/dL AST 23 (15-37) U/L ALT 15 (14-59) U/L Alkaline Phosphatase 80 (46-116) U/L Total Protein 6.9 (6.4-8.2) g/dL Albumin 3.4 (3.4-5.0) g/dL TSH 2.77 (0.36-3.74) uIU/mL Urine Color Dark yellow (Yellow) Urine Appearance Clear (Clear) Urine pH 5.0 (5.0-8.0) Ur Specific [place] >= 1.030 H (1.010-1.020) Urine Protein Negative (Negative) Urine Glucose (UA) Negative (Negative) Urine Ketones Negative (Negative) Ur Blood (Man) Negative (Negative) Urine Nitrate Negative (Negative) Urine Bilirubin 1+ H (Negative) Urine Urobilinogen 0.2 (0.2-1.0) mg/dL Leukocyte Esterase Rfl Negative (Negative) TRICE/UL Urine RBC 0-2 (0-2) /hpf Ur Squamous Epith Cells Few (Few) /hpf Calcium Oxalate Crystal Present H (None) /hpf Amorphous Sediment Moderate H (None) Hyaline Casts 15-19 H (None) /lpf Urine Mucus Heavy H /lpf Discharge Plan Discharge Clinical Impression: Dementia associated with alcoholism with behavioral disturbance Patient Disposition: Home, Self-Care Condition: Stable Instructions: Antibiotic Form, Dementia (ED) Patient Language: Hungarian Prescriptions: No Action Metamucil 1 tbsp PO DAILY Tylenol Arthritis Pain 650 mg PO Q6-8H PRN (Reason: Pain) acetaminophen 325 mg PO BID cholecalciferol (vitamin D3) capsule 2,000 units PO DAILY hydroxyzine pamoate capsule 25 mg PO Q6H PRN (Reason: anxiety ) Rx Instructions: Give 1 capsule by mouth every 6 hours as needed for anxiety for 90 days nitroglycerin 0.4 mg sublingual PRN sucralfate 1 tablet PO QID Rx Instructions: with meals and HS venlafaxine 75 mg PO BID Rx Instructions: 1 capsule cyclobenzaprine 5 mg tablet 5 mg PO TID PRN (Reason: muscle spasm) Qty: 10 0RF potassium chloride [Klor-Con 10] 10 mEq Tablet Extended Release 10 meq PO DAILY alprazolam 0.25 mg Tablet 0.25 mg PO BID lidocaine 5 % Adhesive Patch,Medicated 1 patch TOPICAL DAILY Rx Instructions: leave on most painful area for up to 12 hrs donepezil 10 mg Tablet 10 mg PO HS omeprazole 40 mg Capsule,Delayed Release(Dr/Ec) 40 mg PO DAILY Follow-up/Referrals: Jay Limon MD [Primary Care Provider] - Time of Disposition: 19:13
[2024-01-19 17:08] VITALS: BP 152/72; PULSE 85; RESP 18; TEMP 36.6; O2SAT 100
--- NOTE | 2024-01-19 17:09 | PC.NURSE ---
patient refused to be in a gown
[2024-01-19] MEDS: HALOPERIDOL LACTATE 5 MG/ML VIAL IM (17:23)
[2024-01-19 17:49] LABS: Basophils Absolute Auto 0.04 K/mm3 (0.00-0.10); Basophils Percent Auto 0.4 % (0.0-1.0); Eosinophils Absolute Auto 0.25 K/mm3 (0.02-0.50); Eosinophils Percent Auto 2.6 % (1.0-6.0); Hematocrit 35.3 % (35.0-42.0); Hemoglobin 11.9 g/dL (11.7-13.8); Immature Granulocyte Absolute 0.04 K/mm3 (0.00-0.00); Immature Granulocyte Percent A 0.4 % (0.0-0.0); Lymphocytes Absolute Auto 2.17 K/mm3 (1.10-4.50); Lymphocytes Percent Auto 22.8 % (18.0-42.0); Mean Corpuscular HGB Conc 33.7 g/dL (32-36); Mean Corpuscular Hemoglobin 30.3 pg (27.0-31.0); Mean Corpuscular Volume 89.8 fL (78.0-102.0); Mean Platelet Volume 8.7 fl (9.2-11.8); Monocytes Absolute Auto 0.68 K/mm3 (0.10-0.90); Monocytes Percent Auto 7.2 % (2.0-11.0); Neutrophils Absolute Auto 6.32 K/mm3 (1.70-7.20); Neutrophils Percent Auto 66.6 % (50.0-70.0); Platelet Count Result 348 K/mm3 (150-420); Red Blood Count 3.93 M/mm3 (4.20-5.40); Red Cell Distribution Width 13.5 % (11.6-14.4); White Blood Count 9.5 K/mm3 (4.8-10.8)
[2024-01-19 17:50] LABS: Add Urine Microscopic? YES; Appearance Urine Clear (Clear); Bilirubin Urine 1+ (Negative); Blood Urine Negative (Negative); Color Urine Dark Yellow (Yellow); Glucose Urine UA Negative (Negative); Ketones Urine Negative (Negative); Leukocyte Esterase Ur Negative LEU/UL (Negative); Nitrate Urine Negative (Negative); Protein Urine Negative (Negative); Specific Grav Ur >= 1.030 (1.010-1.020); Urobilinogen Urine 0.2 mg/dL (0.2-1.0)
[2024-01-19 17:59] LABS: Amorphous Sediment Urine Moderate; Calcium Oxalate Crystals Urine Present /hpf; RBC Urine 0-2 /hpf (0-2); Squamous Epithelial Cell Urine Few /hpf (Few)
[2024-01-19 18:00] LABS: Hyaline Casts Urine 15-19 /lpf; Mucus Urine Heavy /lpf
[2024-01-19 18:09] LABS: Lactic Acid Reflex 1.9 mmol/L (0.4-2.0)
[2024-01-19 18:12] LABS: Alanine Aminotransferase 15 U/L (14-59); Albumin Level 3.4 g/dL (3.4-5.0); Alkaline Phosphatase 80 U/L (46-116); Anion Gap 10 mmol/L (4-12); Aspartate Amino Transferase 23 U/L (15-37); Bilirubin,Total 0.2 mg/dL (0.00-1.00); Blood Urea Nitrogen 18 mg/dL (7-18); Calcium 9.6 mg/dL (8.5-10.1); Carbon Dioxide 29 mmol/L (21-32); Chloride 101 mmol/L (98-108); Estimated CRCL calculation 35 ml/min; Estimated Glomerular Filt Rate 55; Glucose 134 mg/dL (70-99); Osmolality Calculated 293 mOsm/kg (285-295); Potassium 3.7 mmol/L (3.5-5.1); Sodium 140 mmol/L (136-145); Thyroid Stimulating Hormone 2.77 uIU/mL (0.36-3.74); Total Protein 6.9 g/dL (6.4-8.2)
--- NOTE | 2024-01-19 19:41 | PC.NURSE ---
Called [facility] to come get patient.
[2024-01-19 19:46] VITALS: BP 177/70; PULSE 74; RESP 18; TEMP 36.3; O2SAT 100
== END 2024-01-19 19:47 | disposition home or self-care (01) ==
PROVIDERS: Emergency Provider Internal Medicine Critical Care Medicine; PCP Family Medicine
DX: F10.97 Alcohol use, unspecified with alcohol-induced persisting dementia (principal); Y90.9 Presence of alcohol in blood, level not specified; Z79.899 Other long term (current) drug therapy
CPT/HCPCS: 36415; 70450; 80053; 81001; 83605; 84443; 85025; 96372; 99284; J1630

== ENCOUNTER 2024-01-29 08:39 | Outpatient (CLI) | payer MEDICARE, SELFPAY ==
[2024-01-29 10:04] LABS: Anion Gap 13 mmol/L (4-12); Blood Urea Nitrogen 15 mg/dL (7-18); Calcium 9.4 mg/dL (8.5-10.1); Carbon Dioxide 22 mmol/L (21-32); Chloride 102 mmol/L (98-108); Estimated Glomerular Filt Rate > 60; Glucose 93 mg/dL (70-99); Osmolality Calculated 284 mOsm/kg (285-295); Potassium 3.9 mmol/L (3.5-5.1); Sodium 137 mmol/L (136-145)
== END 2024-01-29 08:40 | disposition home or self-care (01) ==
LOC: CHSLAB 08:41
PROVIDERS: PCP Family Medicine; Visit Provider Family Medicine
DX: I10 Essential (primary) hypertension (principal); E11.9 Type 2 diabetes mellitus without complications
CPT/HCPCS: 36415; 80048

== ENCOUNTER 2024-03-28 17:07 | Emergency (ER) | payer MEDICARE, OTHER, SELFPAY ==
[2024-03-28] VITALS (9 sets, daily range): BP systolic 103–159; BP diastolic 64–87; PULSE 85; RESP 20; TEMP 37.1; O2SAT 96–97
--- NOTE | ~2024-03-28 | CT_ITS ---
EXAMINATION: CT brain wo con DATE: 03/28/2024 18:44 INDICATION: Head injury. Headache. TECHNIQUE: Computed tomography (CT) of the head was performed without intravenous contrast. The mA wa s adjusted according to patient size. Iterative reconstruction technique was employed. The dose-lengt h product was 681.00 mGy-cm. COMPARISON: Head CT 03/24/2024 FINDINGS: There are scattered areas of low attenuation in the cerebral white matter. There is no intr acranial hemorrhage, acute infarction, or abnormal intracranial mass lesion. The ventricles are celeste l in size. The orbits are normal. The mastoid air cells are normal. There are fractures of the anteri or and posterolateral rico of the maxillary sinuses bilaterally. There are fractures of the nasal se ptum, nasal bones, and nasal processes of maxilla. There are fractures of the right medial and latera l pterygoid plates and left lateral pterygoid plate. There is mucosal thickening and dependent fluid in the paranasal sinuses. The orbits are normal. IMPRESSION: 1. Extensive nonspecific cerebral white matter disease, which likely represents chronic small vessel ischemic disease. 2. Numerous facial bone fractures. Reviewed, dictated and finalized at location A. STANT TO THE DEAN
--- NOTE | ~2024-03-28 | XR_ITS ---
EXAMINATION: XR wrist RT min 3V DATE: 03/28/2024 18:44 INDICATION: Right wrist pain. Fall. TECHNIQUE: 3 views of right wrist were obtained. COMPARISON: None. FINDINGS: There is a transverse fracture of distal radius with involvement of the distal radioulnar j oint. The distal fracture fragment demonstrates impaction and dorsal angulation. There is 5 degrees d orsal tilt of the distal articular surface. There is an avulsion fracture of the ulnar styloid. Joint spaces are normal. IMPRESSION: 1. Transverse fracture of distal radius. 2. Avulsion fracture of the ulnar styloid. Reviewed, dictated and finalized at location A. DRILL OPERATOR
--- NOTE | ~2024-03-28 | XR_ITS ---
EXAMINATION: XR tibia fibula LT 2V DATE: 03/28/2024 18:44 INDICATION: Left lower leg pain. Fall. TECHNIQUE: 2 views of left tibia and fibula on 5 radiographs were obtained. COMPARISON: None. FINDINGS: Alignment is normal. No fracture. Joint spaces are normal. No knee joint effusion. IMPRESSION: 1. No fracture. Reviewed, dictated and finalized at location A. MOBILE BODY WORKER IMPRESSION: 1. No fracture.
--- NOTE | ~2024-03-28 | XR_ITS ---
EXAMINATION: XR hand LT min 3V DATE: 03/28/2024 21:38 INDICATION: Left hand injury. Fall. TECHNIQUE: 3 views of left hand were obtained. COMPARISON: Left hand radiographs 09/30/2007 FINDINGS: There is a comminuted fracture of fifth proximal phalanx involving the proximal articular s urface. The main distal fracture fragment demonstrates 13 degrees dorsal ulnar angulation. Osteopenia is noted. Joint spaces are normal. IMPRESSION: 1. Comminuted fracture of fifth proximal phalanx. Reviewed, dictated and finalized at location A. AL FUND SALES AGENT
--- NOTE | ~2024-03-28 | CT_ITS ---
EXAMINATION: CT facial & cervical spine wo DATE: 03/28/2024 18:44 INDICATION: Head injury. TECHNIQUE: Computed tomography (CT) of the maxillofacial region and cervical spine was performed with out intravenous contrast. Automated exposure control and iterative reconstruction technique were empl oyed. The dose-length product was 155.02 mGy-cm. COMPARISON: CT cervical spine 10/04/2023 FINDINGS: MAXILLOFACIAL CT: There is mucosal thickening and dependent fluid in the paranasal sinuses. The orbits are normal. Ther e are fractures of the nasal bones, nasal processes of maxilla, and nasal septum. There are fractures of the anterior and posterolateral rico of the maxillary sinuses and the bilateral pterygoid plates and right pterygoid body. CERVICAL SPINE CT: There is mild scarring at the lung apices. There is mild emphysema. There is kyphosis of cervical spi ne. There is 5 degrees dextrocurvature of cervical spine. Vertebral body heights are normal. There is severely decreased disc height at C5-C6 and C6-C7. The following disc levels are specifically discus sed: C2-C3: There is mild bilateral uncovertebral joint osteoarthritis. There is mild right and moderate l eft facet joint osteoarthritis. There is no neural foraminal stenosis. There is mild central canal st enosis. C3-C4: There is no uncovertebral joint osteoarthritis. There is severe bilateral facet joint osteoart hritis. There is mild bilateral neural foraminal stenosis. There is no central canal stenosis. C4-C5: There is no uncovertebral joint osteoarthritis. There is moderate bilateral facet joint osteoa rthritis. There is no neural foraminal stenosis. There is no central canal stenosis. C5-C6: There is severe bilateral uncovertebral joint osteoarthritis. There is moderate bilateral face t joint osteoarthritis. There is mild bilateral neural foraminal stenosis. There is mild central cheli l stenosis. C6-C7: There is severe bilateral uncovertebral joint osteoarthritis. There is severe bilateral facet joint osteoarthritis. There is mild bilateral neural foraminal stenosis. There is mild central canal stenosis. C7-T1: There is no uncovertebral joint osteoarthritis. There is severe bilateral facet joint osteoart hritis. There is mild bilateral neural foraminal stenosis. There is no central canal stenosis. IMPRESSION: 1. [place] type II facial bone fractures. 2. Severe cervical spondylosis. Reviewed, dictated and finalized at location A. T CUTTING OPERATOR
--- OUTSIDE RECORDS SUMMARY | 2024-03-28 17:10 | XMS_ITS | Clinical Summary ---
Author Organization [facility] Address [address] [place] [address]. [place], [place] [id number] [place] [id number] Care Team Providers Care Paleobotanist Name Role Phone Baldomero Ibrahim MD Primary Care Provider [phone] Allergies Active Allergy Reactions Criticality Noted Date Comments Abram Inhibitors Unknown 03/07/2017 Cephalexin Unknown 04/16/2019 Losartan Unknown 03/07/2017 Medications pantoprazole EC 40 MG tablet Take 1 tablet (40 mg total) by mouth 2 (two) times daily. 60 tablet 3 07/16/2020 Active donepezil 10 MG Tab Take 10 mg by mouth nightly at bedtime. Active aspirin 81 MG chewable tablet Chew 1 tablet (81 mg total) by mouth daily. 30 tablet 10/27/2021 Active nitroglycerin (NITROSTAT) 0.[address] 1 tablet (0.4 mg total) under the tongue every 5 (five) minutes as needed for Chest Pain (no more than 3 doses). 3 tablet 10/27/2021 Active amLODIPine (NORVASC) 5 MG tablet Take 1 tablet (5 mg total) by mouth daily. 30 tablet 10/27/2021 Active Active Problems Problem Noted Date Diagnosed Date Carpal tunnel syndrome, bilateral upper limbs Family History Medical History Relation Comments Colon Cancer Mother Relation Status Comments Mother Social History Tobacco Use Types Packs/Day Years Used Date Smoking Tobacco: Former Smokeless Tobacco: Never Alcohol Use Standard Drinks/Week Comments Never 0 (1 standard drink = 0.6 oz pur e alcohol) AUDIT-C Answer Date Recorded Frequency of Alcohol Consumption Never 04/16/2019 Average Number of Drinks Not on file 020 Frequency of Binge Drinking Not on file 03/29 Comments No Sex and Gender Information Value Date Recorded Sex Assigned at Not on file Legal Sex Female 10:18 PM OPERATIONS WELDER Gender Identity Not on file Sexual Orientation Not on file Last Filed Vital Signs Vital Sign Reading Time Taken Comments Blood Pressure 181/68 03/13/2022 1:19 PM OPERATIONS WELDER Pulse 70 03/13/2022 1:19 PM OPERATIONS WELDER Temperature 36.4 ??C (97.5 ??F) 03/13/2022 1:19 PM CS T Respiratory Rate 16 03/13/2022 1:19 PM OPERATIONS WELDER Oxygen Saturation 100% 03/13/2022 1:19 PM OPERATIONS WELDER Inhaled Oxygen Concentration - - Weight 56.7 kg (125 lb) 03/13/2022 1:19 PM OPERATIONS WELDER Height 160 cm (5' 3 ) 03/13/2022 1:19 PM OPERATIONS WELDER Body Mass Index 22.14 03/13/2022 1:19 PM OPERATIONS WELDER Plan of Treatment Health Maintenance Due Date Last Done Comments Colorectal Cancer Screening Colonoscopy (10 Years) 1950 Hepatitis C 08/24/1967 DTaP, Tdap and Td Vaccines ( 1 - Tdap) 02/13/1999 02/12/1999 Zoster Vaccines (1 of 2) 08/24/1999 Annual Medicare Wellness Visit 2014 Dexa Scan (General) 2014 Pneumococcal Vaccine: 65+ Years (1 of 1 - PCV) 2014 COVID-19 Vaccine (4 - 2023-2 5 season) 2023 01/06/2021, 05/07/2020, 04/16/2020 Influenza Adult (#1) 2023 12/16/2018, 12/18/2016 RSV Immunization or 60+ Years (1 - 1-dose 75+ series) 2024 Mammogram Screening 08/24/2024 08/24/2022, 10/23/2019, 09/24/2018 Meningococcal B Vaccine Aged Out No l onger eligible based on patient's age to complete this topic Meningococcal Vaccine Aged Out No cyndy payton eligible based on patient's age to complete this topic RSV Immunizations Under 20 Months Aged Out No longer eligible b ased on patient's age to complete this topic Procedures Procedure Name Priority Date/Time Associated Diagnosis Comments MG SCREENING W YAHAIRA JOSHUA DIGI Routine 08/24/2022 10:22 AM CDT Visit for screening mammogram from Last 3 Months or Most Recently Relevant to Health Maintenance Results * MG SCREENING W YAHAIRA JOSHUA DIGI (08/24/2022 10:22 AM CDT) Anatomical Region Laterality Modality Breast Bilateral Mammography 08/28/2022 1:34 PM CDT Narrative 08/28/2022 1:34 PM CDT EXAMINATION: BILATERAL SCREENING MAMMOGRAPHY Exam Date: 08/24/2022 9:12 AM ? CLINICAL INDICATION: ??72 years ??of age female routine screening. COMPARISON: Dating back to 09/05/2017 TECHNIQUE: Digital CC & MLO views. Tomosynthesis imaging acquisition Study read with the assistance of a computer-aided detection system. TISSUE DENSITY: There are scattered areas of fibroglandular density. FINDINGS: No suspicious grouping of microcalcifications, architectural distortion, or new dominant suspicious nodule 3 dimensionally demonstrated in either breast. IMPRESSION: No interval features to suggest malignancy. In the absence of clinical symptoms, return for annual screening mammogram due in 1 year. RECOMMENDATION: Routine Screening, Bilateral in 1 year ASSESSMENT: ACR BI-RADS 1 - NEGATIVE Ordered By: BALDOMERO IBRAHIM Interpreted By: Quincy Shell MD, 08/28/2022 1:34 PM us Baldomero Ibrahim MD MAMMO Final Result from Last 3 Months or Most Recently Relevant to Health Maintenance Insurance MEDICARE [facility] MEDICARE [facility] Care Teams Paleobotanist Relationship Specialty [place] [address] [place] [address] [place] [phone] PCP - General FAMILY PRACTICE 09/11/18
--- OUTSIDE RECORDS SUMMARY | 2024-03-28 17:10 | XMS_ITS | Encounter Summary ---
Author Organization [facility] Address [address] [place] [address]. [place] [address] [place] [address] Care Team Providers Care Lead Web Application Developer Name Role Phone Baldomero Amin MD Primary Care Provider [phone] Encounter Details Date Type Department Care Team (Late Contact Info) Description 08/03/2018 Abstract SFL CONVERSION [address] [place] [address] , Generic Conversion, Social History Tobacco Use Types Packs/Day Years Used Date Smoking Tobacco: Never Assessed Comments Unknown Sex and Gender Information Value Date Recorded Sex Assigned at Not on file Legal Sex Female 10:18 PM BOX REPAIRER Gender Identity Not on file Sexual Orientation Not on file documented as of this encounter Plan of Treatment Not on file documented as of this encounter Visit Diagnoses Not on filedocumented in this encounter Additional Health Concerns Infection Onset Date Last Indicated Resolved Time COVID-19 Rule Out 03/03/2020 03/03/2020 03/05/2020 7:39 AM BOX REPAIRER COVID-19 Rule Out 06/26/2020 06/26/2020 06/27/2020 4:50 PM CDT COVID-19 Rule Out 07/13/2020 07/13/2020 07/14/2020 7:20 PM CDT documented as of this encounter Care Teams Lead Web Application Developer Relationship Specialty Start Date End Date Baldomero Amin MD [address] [place] [phone] PCP - General FAMILY PRACTICE 09/11/18 documented as of this encounter
--- NOTE | 2024-03-28 17:13 | ED_ITS ---
HPI - Fall General Chief Complaint: Fall Stated Complaint: fall Time Seen by Provider: 03/28/24 17:11 Source: patient, family and EMS Mode of arrival: EMS Limitations: no limitations History of Present Illness HPI Narrative: Patient is a 73-year-old female with a ground level fall with injury to her face. She hit her head and neck. No loss of consciousness. This was an accident. Patient does not take blood thinners. tetanus shot up-to-date. complaint: fall Onset (ago): hour(s) (1) Fall from: standing Fall witnessed: no Place fall occurred: home Loss of consciousness: none Prolonged down time: no Symptoms prior to fall: none Context: tripped/slipped Location of injury: head, face and neck Location of injury - extremities: Left: hand and lower leg and Right: forearm Severity: moderate Severity scale (1-10): 5 Quality: sharp Associated symptoms (after fall): denies Related Data Home Medications ?Medication ?Instructions ?Recorded ?Confirmed ?Last Taken ?Type donepezil 10 mg tablet 10 mg PO HS 01/12/23 01/19/24 Unknown History omeprazole 40 mg capsule,delayed 40 mg PO DAILY 01/12/23 01/19/24 Unknown History release Metamucil 1 tbsp PO DAILY 10/04/23 01/19/24 Unknown History Tylenol Arthritis Pain 650 mg PO Q6-8H PRN Pain 10/04/23 01/19/24 Unknown History acetaminophen 325 mg PO BID 10/04/23 01/19/24 Unknown History cholecalciferol (vitamin D3) 2,000 units PO DAILY 10/04/23 01/19/24 Unknown History hydroxyzine pamoate 25 mg PO Q6H PRN anxiety 10/04/23 01/19/24 Unknown History nitroglycerin 0.4 mg sublingual PRN 10/04/23 01/19/24 Unknown History sucralfate 1 tablet PO QID 10/04/23 01/19/24 Unknown History venlafaxine 75 mg PO BID 10/04/23 01/19/24 Unknown History alprazolam 0.25 mg tablet 0.25 mg PO BID 01/19/24 01/19/24 Unknown History lidocaine 5 % topical patch 1 patch topical DAILY 01/19/24 01/19/24 Unknown History potassium chloride 10 mEq 10 meq PO DAILY 01/19/24 01/19/24 Unknown History tablet,extended release (Klor-Con) Allergies Allergy/AdvReac Type Severity Reaction Status Date / Time ARCELIA Inhibitors Allergy Unknown Verified 03/24/24 12:24 losartan Allergy Unknown Verified 03/24/24 12:24 CEPHALEXIN MONOHYDRATE Allergy Severe RASH Uncoded 03/24/24 12:24 Review of Systems Review of Systems: All systems reviewed & are unremarkable except as noted in HPI and below Constitutional: Constitutional: Reports no additional constitutional compl aints Eyes: Eyes: Reports no additional eye complaints ENT: Reports system reviewed and no additional complaints, except as documented Cardiovascular: Cardiovascular: Reports no additional cardiovascular complaints Respiratory: Respiratory: Reports no additional respiratory complaints Gastrointestinal: Gastrointestinal: Reports no additional gastrointestinal complaints Genitourinary: Genitourinary: Reports no additional female genitourinary complaints Musculoskeletal: Musculoskeletal: Reports no additional musculoskeletal complaints Integumentary/Breasts: Skin/Breast: Reports system reviewed and no additional complaints, except as docu Neurologic: Reports system reviewed and no additional complaints, except as documented Psychiatric: Psychiatric: Reports no additional psychiatric complaints Endocrine: Endocrine: Reports no additional endocrine complaints Hematologic/Lymphatic: Hematologic/Lymphatic: Reports no additional hematologic/lymphatic complaints Allergic/Immunologic: Allergic/Immunologic: Reports no additional allergic/immunologic complaints PMFSH Past Medical History Medical History Herpes zoster Esophageal spasm Social History Social History Substance use type: does not use Exam 2 Const: General: healthy appearing Nutritional Appearance: well nourished Other: Patient has baseline moderate dementia HENMT: Head: normal to inspection Ears: external ears normal Face/Nose/Sinus: Normal external nose present Eyes: Conjunctivae: conjunctivae normal Pupils: Equal, round and reactive pupils present EOM: EOMs intact bilaterally Neck: Neck: normal visual inspection Chest: Chest palpation & inspection: normal inspection of the chest Resp: Effort & Inspection: normal respiratory effort and not labored Auscultation: clear to auscultation bilaterally and no crackles Cardio: Rate: regular rate Rhythm: regular rhythm Heart sounds: no murmurs GI: Inspection: non-distended GI Palp: Yes Soft to palpation and No Tenderness to palpation present (GI) Auscultation: normal bowel sounds : General: Yes bladder normal to palpation Back/Spine/Pelvis: Back: no CVA tenderness Skin: General skin exam: normal color Rashes: no rashes Wounds: wound noted Other: patient has multiple facial small lacerations with deformity of the nose Neuro: General: moves all extremities, no meningeal signs, no focal motor de ficits and CN's II-XI intact bilaterally Cranial nerves: Yes Nystagmus not present Speech: normal speech Other: fast exam is negative, NIH score 0, GCS is 15 Extrem: General: abnormal to inspection Other: left small digit appears deformed /ecchymosis, right wrist appears deformed /ecchymosis, left lower leg has ecchymosis Psych: Mental Status: mental status grossly normal Affect: normal affect Attitude: cooperative Course Vital Signs Vital signs: Vital Signs Temperature 37.1 C 03/28/24 17:41 Pulse Rate 85 03/28/24 17:41 Respiratory Rate 20 03/28/24 17:41 Blood Pressure 159/87 H 03/28/24 17:41 Pulse Oximetry 97 03/28/24 17:41 Oxygen Delivery Room Air 03/28/24 17:41 Temperature 37.1 C 03/28/24 17:41 Pulse Rate 85 03/28/24 17:41 Respiratory Rate 20 03/28/24 17:41 Blood Pressure 159/87 H 03/28/24 17:41 Pulse Oximetry 97 03/28/24 17:41 Oxygen Delivery Room Air 03/28/24 17:41 MDM - Fall MDM Narrative Medical decision making narrative: patient is a 73-year-old female with a facial trauma as well as multiple other limbs. We will do x-rays and CT scans for reassurance. After workup, it appears that she has multiple facial fractures as well as a left hand and a right wrist which are both fractured. We will transfer patient for trauma services. Imaging Data Attestation: I personally reviewed and interpreted this imaging study as follows: Radiologist's impression: X-ray left hand shows a 5th digit fracture right wrist x-ray shows distal radial and styloid ulnar fracture CT of the head does not show acute process of the brain but it does show multiple facial fractures x-ray left lower extremity negative for acute fractures x-ray cervical spine and facial bones shows multiple facial fractures but normal C spine Critical Care Time Critical Care Time Critical Care Time: Yes Total Critical Care Time: 45 Discharge Plan Discharge Clinical Impression: Closed extensive facial fractures Qualifiers: Encounter type: initial encounter Qualified Code(s): S02.92XA - Unspecified fracture of facial bones, initial encounter for closed fracture Fracture of wrist Qualifiers: Encounter type: initial encounter Fracture type: closed Laterality: right Qualified Code(s): S62.101A - Fracture of unspecified carpal bone, right wrist, initial encounter for closed fracture Closed hand fracture Qualifiers: Encounter type: initial encounter Laterality: left Qualified Code(s): S62.92XA - Unspecified fracture of left wrist and hand, initial encounter for closed fracture Blunt trauma of face Qualifiers: Encounter type: initial encounter Qualified Code(s): S09.93XA - Unspecified injury of face, initial encounter Patient Disposition: Acute Care Hospital Condition: Stable Patient Language: Guyanese Prescriptions: No Action Metamucil 1 tbsp PO DAILY Tylenol Arthritis Pain 650 mg PO Q6-8H PRN (Reason: Pain) acetaminophen 325 mg PO BID cholecalciferol (vitamin D3) capsule 2,000 units PO DAILY hydroxyzine pamoate capsule 25 mg PO Q6H PRN (Reason: anxiety ) Rx Instructions: Give 1 capsule by mouth every 6 hours as needed for anxiety for 90 days nitroglycerin 0.4 mg sublingual PRN sucralfate 1 tablet PO QID Rx Instructions: with meals and HS venlafaxine 75 mg PO BID Rx Instructions: 1 capsule cyclobenzaprine 5 mg tablet 5 mg PO TID PRN (Reason: muscle spasm) Qty: 10 0RF potassium chloride [Klor-Con 10] 10 mEq Tablet Extended Release 10 meq PO DAILY alprazolam 0.25 mg Tablet 0.25 mg PO BID lidocaine 5 % Adhesive Patch,Medicated 1 patch TOPICAL DAILY Rx Instructions: leave on most painful area for up to 12 hrs donepezil 10 mg Tablet 10 mg PO HS omeprazole 40 mg Capsule,Delayed Release(Dr/Ec) 40 mg PO DAILY nitrofurantoin monohyd/m-cryst [Macrobid] 100 mg capsule 100 mg PO Q12H 5 Days Qty: 10 0RF Rx Instructions: must administer with a meal/food Follow-up/Referrals: Jay Limon MD [Primary Care Provider] - Time of Disposition: 23:09
--- OUTSIDE RECORDS SUMMARY | 2024-03-28 17:42 | XMS_ITS | Encounter Summary ---
Author Organization [facility] Address [address] [place] [address]. [place] [address] [place] [address] Care Team Providers Care Solid Waste Collection Worker Name Role Phone Baldomero Amin MD Primary Care Provider [phone] Encounter Details Date Type Department Care Team (Late Contact Info) Description 08/03/2018 Abstract SFL CONVERSION [address] [place] [address] , Generic Conversion, Social History Tobacco Use Types Packs/Day Years Used Date Smoking Tobacco: Never Assessed Comments Unknown Sex and Gender Information Value Date Recorded Sex Assigned at Not on file Legal Sex Female 10:18 PM CAR WASH ATTENDANT Gender Identity Not on file Sexual Orientation Not on file documented as of this encounter Plan of Treatment Not on file documented as of this encounter Visit Diagnoses Not on filedocumented in this encounter Additional Health Concerns Infection Onset Date Last Indicated Resolved Time COVID-19 Rule Out 03/03/2020 03/03/2020 03/05/2020 7:39 AM CAR WASH ATTENDANT COVID-19 Rule Out 06/26/2020 06/26/2020 06/27/2020 4:50 PM CDT COVID-19 Rule Out 07/13/2020 07/13/2020 07/14/2020 7:20 PM CDT documented as of this encounter Care Teams Solid Waste Collection Worker Relationship Specialty Start Date End Date Baldomero Amin MD [address] [place] [id number] PCP - General FAMILY PRACTICE 09/11/18 documented as of this encounter
--- OUTSIDE RECORDS SUMMARY | 2024-03-28 17:42 | XMS_ITS | Clinical Summary ---
Author Organization [facility] Address [address] [place] [address]. [place], [place] [id number] [place] [id number] Care Team Providers Care Financial Wellness Coach Name Role Phone Baldomero Ibrahim MD Primary Care Provider [phone] Allergies Active Allergy Reactions Criticality Noted Date [...] on file Legal Sex Female 10:18 PM CUSTOMER SERVICE ANALYST Gender Identity Not on file Sexual Orientation Not on file Last Filed Vital Signs Vital Sign Reading Time Taken Comments Blood Pressure 181/68 03/13/2022 1:19 PM CUSTOMER SERVICE ANALYST Pulse 70 03/13/2022 1:19 PM CUSTOMER SERVICE ANALYST Temperature 36.4 ??C (97.5 ??F) 03/13/2022 1:19 PM CS T Respiratory Rate 16 03/13/2022 1:19 PM CUSTOMER SERVICE ANALYST Oxygen Saturation 100% 03/13/2022 1:19 PM CUSTOMER SERVICE ANALYST Inhaled Oxygen Concentration - - Weight 56.7 kg (125 lb) 03/13/2022 1:19 PM CUSTOMER SERVICE ANALYST Height 160 cm (5' 3 ) 03/13/2022 1:19 PM CUSTOMER SERVICE ANALYST Body Mass Index 22.14 03/13/2022 1:19 PM CUSTOMER SERVICE ANALYST Plan of Treatment Health Maintenance Due Date [...] ACR BI-RADS 1 - NEGATIVE Ordered By: BALDOEMRO IBRAHIM Interpreted By: Quincy Shell MD, 08/28/2022 1:34 PM us Baldomero Ibrahim MD MAMMO Final Result from Last 3 Months or Most Recently Relevant to Health Maintenance Insurance MEDICARE [facility] MEDICARE [facility] [facility] Care Teams Financial Wellness Coach Relationship Specialty [place] [address] [place] [address] [place] [id number] PCP - General FAMILY PRACTICE 09/11/18
[2024-03-28] MEDS: MORPHINE SULFATE (*CRX) 2 MG/ML INJ IV PUSH (19:52)
--- NOTE | 2024-03-28 20:24 | PC.NURSE ---
Addendum entered by Luci Harrison RN 03/28/24 20:26: ERP notified Original Note: Pt has bruising to left 5th digit. This injury was not noticed upon arrival.
--- NOTE | 2024-03-28 21:07 | PC.NURSE ---
Called [facility] to give them an update on pt condition. Spoke to RN, Harper. She asks that we call them back with an update when pt is transferred.
[2024-03-28] MEDS: HALOPERIDOL 1 MG TABLET 2 MG PO (21:32)
[2024-03-29 00:01] VITALS: BP 143/71
--- NOTE | 2024-03-29 00:13 | PC.NURSE ---
Called [facility] transfer center for update. Spoke to Debby. She will call [facility] for an updated and call me back.
[2024-03-29 00:31] VITALS: BP 154/66
[2024-03-29 00:47] VITALS: BP 154/68; O2SAT 97
[2024-03-29 01:01] VITALS: BP 146/69; O2SAT 96
--- NOTE | 2024-03-29 01:05 | PC.NURSE ---
ERP aware of pt's high bp. No new orders.
--- NOTE | 2024-03-29 01:30 | PC.NURSE ---
Called [facility] with update on pt. Spoke to ROLAND Ca.
--- NOTE | 2024-03-29 01:30 | PC.NURSE ---
Called pt's daughter, Chiara Castillo, to let her know that pt has left to be transferred to [facility].
== END 2024-03-29 01:25 | disposition short-term general hospital (02) ==
PROVIDERS: Emergency Provider Emergency Medicine; PCP Family Medicine
DX: S02.92XA Unspecified fracture of facial bones, initial encounter for closed fracture (principal); S62.101A Fracture of unspecified carpal bone, right wrist, initial encounter for closed fracture; S62.92XA Unspecified fracture of left hand, initial encounter for closed fracture; S09.93XA Unspecified injury of face, initial encounter; W18.30XA Fall on same level, unspecified, initial encounter
CPT/HCPCS: 29125; 70450; 70486; 72125; 73110; 73130; 73590; 96374; 99285; A9270; J2270